=== PATIENT | female | born 1985 | race Caucasian/White ===

== ENCOUNTER 2020-07-03 02:36 | Inpatient (IN) | payer OTHER ==
[~2020-07-03] VITALS: Ht 162.6 cm; Wt 86.2 kg
== END 2020-07-05 21:30 | disposition home or self-care (01) | DRG 439 ==
LOC: ER 02:36 → MEDJ 14:54 → SEC-K 14:54 → MEDJ 18:37
PROVIDERS: ADMIT Internal Medicine; ATTEND Internal Medicine
PROC: BF37ZZZ Magnetic Resonance Imaging (MRI) of Pancreas (ICD-10-PCS; principal; 2020-07-03)
PROC: BW40ZZZ Ultrasonography of Abdomen (ICD-10-PCS; 2020-07-03)
DX: K85.10 Biliary acute pancreatitis without necrosis or infection (principal); K80.12 Calculus of gallbladder with acute and chronic cholecystitis without obstruction; E86.0 Dehydration; E66.8 Other obesity; Z20.828 Contact with and (suspected) exposure to other viral communicable diseases; Z53.29 Procedure and treatment not carried out because of patient's decision for other reasons